=== PATIENT | male | born 1995 | race Caucasian/White ===

== ENCOUNTER 2016-12-01 22:23 | Emergency (ER) | payer BC, OTHER ==
[~2016-12-01] VITALS: Ht 188 cm; Wt 112.1 kg
[2016-12-01 22:35] VITALS: TEMP 37.2; Ht 188 cm; Wt 112.1 kg
[2016-12-01] MEDS ORDERED: SODIUM CHLORIDE 0.9% 1000ML 1,000 ML IV STA (22:36)
--- NOTE | 2016-12-01 22:55 | DIAGNOSTIC IMAGING REPORT ---
CHEST ONE VIEW PORTABLE HISTORY: 21 years-old Male ALTERED MENTAL STATUS/WEAKNESS COMPARISON: None available TECHNIQUE: Portable upright AP view of the chest FINDINGS: Cardiomediastinal and hilar silhouettes are within normal limits. Lungs are mildly hypoinflated without pneumothorax, pleural effusion or focal airspace consolidation. The bones are grossly intact. IMPRESSION: No acute cardiopulmonary process. The above report was generated using voice recognition software. It may contain grammatical, syntax or spelling errors. Electronically signed by: Lazarus Kern M.D. 12/01/2016 10:53 PM Dictated Date/Time: 12/01/2016 10:52 PM
[2016-12-01 23:00] LABS: BASO % 0.3 %; BASO ABS # 0.03 K/uL (0-0.2); COMPLETE YES; EOS % 2.6 %; HEMATOCRIT 41.4 % (42-52); IG% 0.2 %; LYMPH % 40.8 %; MEAN CELL VOLUME 84.7 fL (80-100); MEAN CORPUSCULAR HEMOGLOBIN 29.2 pg (25-34); MEAN CORPUSCULAR HGB CONC 34.5 g/dl (32-36); MEAN PLATELET VOLUME 10.1 fL (7.4-10.4); MONO % 5.7 %; NEUT % 50.4 %; PLATELET COUNT 206 K/uL (130-400); RED BLOOD COUNT 4.89 M/uL (4.7-6.1); WHITE BLOOD COUNT 8.82 K/uL (4.8-10.8)
--- NOTE | 2016-12-01 23:04 | DIAGNOSTIC IMAGING REPORT ---
HEAD WITHOUT CONTRAST (CT) CLINICAL HISTORY: 21 years-old Male with ALTERED MENTAL STATUS/WEAKNESS. TECHNIQUE: Multiple axial CT images of the head were obtained without contrast. A dose lowering technique was utilized adhering to the principles of ALARA. CT DOSE: 614.27 mGy.cm COMPARISON: None. FINDINGS: No acute intracranial hemorrhage, midline shift, mass, large territorial ischemia or abnormal extra-axial collection. The calvarium is intact. The paranasal sinuses, mastoid air cells, and middle ear cavities are clear. IMPRESSION: Normal head CT. The above report was generated using voice recognition software. It may contain grammatical, syntax or spelling errors. Electronically signed by: Lazarus Kern M.D. 12/01/2016 11:03 PM Dictated Date/Time: 12/01/2016 11:01 PM
[2016-12-01 23:10] LABS: PARTIAL THROMBOPLASTIN RATIO 0.9; PROTHROMBIN TIME (PATIENT) 11.1 SECONDS (9.0-12.0)
[2016-12-01 23:19] LABS: ALT/SGPT 26 U/L (12-78); BLOOD UREA NITROGEN 11 mg/dl (7-18); BUN/CREATININE RATIO 11.1 (10-20); CALCIUM 9.2 mg/dl (8.5-10.1); CARBON DIOXIDE 29 mmol/L (21-32); CHLORIDE 109 mmol/L (98-107); GLUCOSE 108 mg/dl (70-99); MAGNESIUM 2.1 mg/dl (1.8-2.4); POTASSIUM 3.2 mmol/L (3.5-5.1); SODIUM 144 mmol/L (136-145)
[2016-12-01 23:27] LABS: ALKALINE PHOSPHATASE 124 U/L (45-117); AST/SGOT 15 U/L (15-37); CKMB/CK RATIO 0.7 (0-3.0); THYROID STIMULATING HORMONE 0.822 uIu/ml (0.300-4.500)
[2016-12-02] MEDS ORDERED: LEVETIRACETAM 500 MG TAB PO ONE (00:15)
[2016-12-02] MEDS ORDERED: LEVE500T13 PO (00:18)
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
[2016-12-02 00:50] VITALS: BP 122/71; PULSE 63; O2SAT 99
== END 2016-12-02 00:51 | disposition home or self-care (01) ==
LOC: EDBD 22:23 → C.EDC 22:25
DX: R56.9 Unspecified convulsions (principal)